=== PATIENT | female | born 1975 | race Caucasian/White ===

== ENCOUNTER 2021-06-22 18:35 | Emergency (ER) | payer BC, SELFPAY ==
[2021-06-22 18:45] VITALS: BP 150/81; PULSE 91; RESP 18; TEMP 37.3; O2SAT 99
--- NOTE | 2021-06-22 18:48 | ED.FEMALEGU ---
HPI - Female Genitourinary General Chief complaint: Urogenital-Female Stated complaint: exposure to std Time Seen by Provider: 06/22/21 18:45 Source: patient and RN notes reviewed Mode of arrival: ambulatory Limitations: no limitations History of Present Illness HPI Narrative: 46-year-old female presents to the [facility] with concerns over STD exposure, specifically gonorrhea. Patient states that a person she was intimate with had called her today and states that he tested positive for gonorrhea. Denies any symptoms. No open sores. No rashes, no abnormal discharge Related Data Home Medications Medication Instructions Recorded Confirmed hydrochlorothiazide 25 mg tablet 25 mg PO DAILY 11/13/19 cefuroxime axetil 06/22/21 clonazepam 06/22/21 cyclobenzaprine mg 06/22/21 venlafaxine mg PO 06/22/21 Allergies Allergy/AdvReac Type Severity Reaction Status Date / Time adhesive Allergy Unknown BLISTERS Verified 11/13/19 12:50 niacin Allergy Unknown Unknown Verified 11/13/19 12:50 Review of Systems Review of Systems: All systems reviewed & are unremarkable except as noted in HPI and below Constitutional: Constitutional: Reports no additional constitutional complaints, Denies chills and Denies fatigue Eyes: Eyes: Reports no additional eye complaints ENT: Reports system reviewed and no additional complaints, except as documented Cardiovascular: Cardiovascular: Reports no additional cardiovascular complaints Respiratory: Respiratory: Reports no additional respiratory complaints Gastrointestinal: Gastrointestinal: Reports no additional gastrointestinal complaints and Denies abdominal pain Genitourinary: Genitourinary: Reports no additional female genitourinary complaints and Denies dysuria Musculoskeletal: Musculoskeletal: Reports no additional musculoskeletal complaints Integumentary/Breasts: Skin/Breast: Reports system reviewed and no additional complaints, except as docu Neurologic: Reports system reviewed and no additional complaints, except as documented Psychiatric: Psychiatric: Reports no additional psychiatric complaints Allergic/Immunologic: Allergic/Immunologic: Reports no additional allergic/immunologic complaints [facility] Past Medical History Medical History (Updated 06/22/21 @ 19:29 by Helena Kovacs) Anemia Hypertension Surgical History Surgical History History of endometrial ablation History of tubal ligation Hx of cholecystectomy Family History Family History Mother Hypertension Family history of diabetes mellitus in first degree relative Father Hypertension Grandparent Hypertension Carcinoma of colon Diabetes mellitus Social History Social History Smoking status: Never smoker Second hand tobacco smoke exposure: No Alcohol intake: current Gender identity (if verbalized by the patient): Female Comments At the time of my signature, I reviewed and agree with the nursing past medical, surgical, social, and family history. There is no relevant family history pertinent to the patient complaint. Exam Const: General: healthy appearing, no acute distress and alert Nutritional Appearance: well nourished Orientation/consciousness: patient oriented x3 Limitations: no limitations HENMT: Head: normal to inspection Ears: external ears normal Eyes: Conjunctivae: conjunctivae normal Pupils: Equal, round and reactive pupils present Neck: Neck: normal visual inspection, no lymphadenopathy and no meningeal signs Chest: Chest palpation & inspection: normal inspection of the chest Resp: Effort & Inspection: normal respiratory effort and no use of accessory muscles Auscultation: clear to auscultation bilaterally, no crackles, no rales, no rhonchi and no wheezes Cardio: Rate: regular rate Rhythm: regular rhythm GI: GI Palp: Yes So
[2021-06-22] MEDS: LIDOCAINE HCL 1% LOCAL INJ 20 ML VIAL 2.1 ML IM (19:24)
[2021-06-22] MEDS: cefTRIAXone 1 GM VIAL 500 GM IM (19:28)
== END 2021-06-22 19:43 | disposition home or self-care (01) ==
PROVIDERS: Emergency Provider Nurse Practitioner; PCP Family Medicine
DX: Z04.89 Encounter for examination and observation for other specified reasons (principal); B37.3 Candidiasis of vulva and vagina; I10 Essential (primary) hypertension
CPT/HCPCS: 87070; 87491; 87591; 87661; 96372; 99214; A9270; G0463; J0696

== ENCOUNTER 2021-10-21 12:35 | Emergency (ER) | payer BC, SELFPAY ==
[2021-10-21 12:56] VITALS: BP 152/79; PULSE 87; RESP 18; TEMP 36.6; O2SAT 97
--- NOTE | 2021-10-21 13:38 | ED.FEMALEGU ---
HPI - Female Genitourinary General Chief complaint: Urogenital-Female Stated complaint: vaginal discharge Source: patient and RN notes reviewed Limitations: no limitations History of Present Illness HPI Narrative: The patient, previously mostly healthy nurse, presents with vaginal discharge. Patient states she has about 1/2-week history of vaginal discharge which is yellowish; she is sexually active --last, protected intercourse about a month ago [partner currently unavailable]. No frequency/urgency/dysuria/malodor, fever, abdominal pain, rash blood; she declines pelvic/bimanual exam. Symptoms are mild most noticeable with micturition;she declines and denies , as she has had only surgery of bilateral tubal ligation. She requests antibiotics pending lab testing results. Vital signs remarkable for blood pressures 152/79. The patient has been informed that they may have pre-hypertension or Hypertension based on a BP reading in the department. I recommend that the patient call the primary care provider listed on their discharge instructions or a physician of their choice this week to arrange follow up for further evaluation of possible pre-hypertension or Hypertension Related Data Allergies Allergy/AdvReac Type Severity Reaction Status Date / Time adhesive Allergy Unknown BLISTERS Verified 11/13/19 12:50 niacin Allergy Unknown Unknown Verified 11/13/19 12:50 Review of Systems Review of Systems: General/Constitutional: No weight loss,fever Eyes: N0: Redness,discharge Ears/Nose/Throat: No: Epistaxis,ear discharge Respiratory: Denies: Hemoptysis Gastrointestinal: No Vomiting, Bleeding-rectal Skin: No Lumps, eruption Neurologic: No Focal Weakness,Sz Hematologic: Denies: Petechiae/Purpura Psychiatric: No: Suicida ideationl All Other Systems: Reviewed and Negative [facility] Past Medical History Medical History (Updated 10/21/21 @ 14:19 by Tin Palomares MD) Anemia Hypertension Surgical History Surgical History History of endometrial ablation History of tubal ligation Hx of cholecystectomy Family History Family History Mother Hypertension Family history of diabetes mellitus in first degree relative Father Hypertension Grandparent Hypertension Carcinoma of colon Diabetes mellitus Social History Social History Smoking status: Never smoker Second hand tobacco smoke exposure: No Alcohol intake: current Gender identity (if verbalized by the patient): Female Comments At time of signature, agree with nursing past medical, surgical, social and family history. There is no relevant family history pertinent to the presenting complaint Exam Narrative: General Appearance: Well appearing, No distress EYE: PERRLA, Conjunctiva clear Ears: External ear normal Nose: Normal nose Mouth/Throat: Normal appearing, Normal lips Neck: Supple Respiratory: Airway patent, No respiratory distress Cardiovascular: RRR Abdomen: Soft, Non-tender, No massess, No organomegaly Musculoskeletal: Full ROM Skin: Warm, Dry Neurological: A&O x3, CN II-X intact Psychiatric: Normal mood, Normal affect Course Vital Signs Vital signs: Vital Signs Temperature 98 F 10/21/21 12:56 Pulse Rate 87 10/21/21 12:56 Respiratory Rate 18 10/21/21 12:56 Blood Pressure 152/79 H 10/21/21 12:56 Pulse Oximetry 97 10/21/21 12:56 Temperature 98 F 10/21/21 12:56 Pulse Rate 87 10/21/21 12:56 Respiratory Rate 18 10/21/21 12:56 Blood Pressure 152/79 H 10/21/21 12:56 Pulse Oximetry 97 10/21/21 12:56 MDM - Female Genitourinary Lab Data Labs: Lab Results 10/21/21 Range/Units 13:55 C.trachomatis RNA (TMA) Pending N.gonorrhoeae RNA (TMA) Pending T. vaginalis Amp RNA Pending Urine Glucose Negative
[2021-10-21] MEDS: cefTRIAXone 1 GM VIAL 0.5 GM IM (13:51)
[2021-10-21] MEDS: LIDOCAINE HCL 1% LOCAL INJ 20 ML VIAL 2.1 ML XX (13:52)
== END 2021-10-21 14:28 | disposition home or self-care (01) ==
PROVIDERS: Emergency Provider Emergency Medicine; PCP Family Medicine
DX: N89.8 Other specified noninflammatory disorders of vagina (principal); I10 Essential (primary) hypertension
CPT/HCPCS: 81003; 87077; 87086; 87088; 87491; 87591; 87661; 96372; 99214; G0463; J0696

== ENCOUNTER 2023-02-27 15:59 | Outpatient (CLI) | payer BC, SELFPAY ==
--- NOTE | ~2023-02-27 | CT_ITS ---
EXAMINATION: CT abdomen pelvis w con DATE: 02/27/2023 16:40 INDICATION: Abdominal pain. Weight loss. Night sweats. TECHNIQUE: Computed tomography (CT) of the abdomen and pelvis was performed with 100 mL Omnipaque 350 intravenous contrast. Automated exposure control and iterative reconstruction technique were employe d. The dose-length product was 752.01 mGy-cm. COMPARISON: None. FINDINGS: The visualized portions of the lung bases demonstrate mild scarring in paraspinal right low er lobe. No pleural effusion. The heart size is normal. No pericardial effusion. The liver and spleen are normal. There are changes of cholecystectomy. The pancreas, adrenal glands, and kidneys are norm al. There is a 1 mm stone in left kidney. There are no dilated loops of bowel. The appendix is normal . There are no pathologically enlarged lymph nodes. There is no free intraperitoneal fluid. There is mild thoracic and lumbar spondylosis. IMPRESSION: 1. No etiology for the patient's symptoms. Reviewed, dictated and finalized at location A.
== END 2023-02-27 16:00 | disposition home or self-care (01) ==
LOC: ANHIMG 16:03
PROVIDERS: PCP Family Medicine; Visit Provider Physician Assistant
DX: R10.9 Unspecified abdominal pain (principal); R63.4 Abnormal weight loss; R61 Generalized hyperhidrosis
CPT/HCPCS: 74177; Q9967

== ENCOUNTER 2023-08-13 15:05 | Outpatient (CLI) | payer BC, SELFPAY ==
[2023-08-13 15:47] LABS: Anion Gap 10 mmol/L (8-16); Blood Urea Nitrogen 11 mg/dL (7-17); Calcium 9.1 mg/dL (8.4-10.2); Carbon Dioxide 27 mmol/L (22-30); Chloride 102 mmol/L (98-107); Estimated Glomerular Filt Rate > 60; Glucose 110 mg/dL (65-110); Potassium 4.3 mmol/L (3.4-5.0); Sodium 139 mmol/L (137-145)
== END 2023-08-13 15:06 | disposition home or self-care (01) ==
PROVIDERS: Anesthesiology; PCP Physician Assistant; Visit Provider Surgery
DX: E11.9 Type 2 diabetes mellitus without complications (principal)
CPT/HCPCS: 36415; 80048

== ENCOUNTER 2023-08-16 00:29 | Day surgery (SDC) | payer BC, SELFPAY ==
--- NOTE | 2023-08-08 16:44 | PC.NURSE ---
Report to the Outpatient Waiting Room, entrance under the green pavilion located off [facility], at time 1000 on date 08/16/23. Planned Procedure Time: 1200. Time changes happen often and if your time is changed the preop area will call you the afternoon before. - You and your visitor will be asked to self-screen and do not enter if you have any COVID symptoms. - A mask is optional within the hospital at this time. Patients may have clear liquids (water, carbonated beverages, clear teas, apple juice) until 3 hours prior to surgery with a maximum of 20 ounces. 0900 - No food from midnight until time of surgery - Infants may have breast milk until 4 hours before surgery, formula 6 hours prior to surgery. - Children will be allowed to drink immediately following surgery. If applicable, please bring a bottle or sippy cup to assist with drinking. Juice, water, soda, and popsicles are readily available. For infants on formula, please bring formula the day of surgery. Pacifiers are allowed. Take the following medications with a SIP of water the morning of surgery: NONE DO NOT STOP ANY OF YOUR OTHER PRESCRIPTION MEDICATIONS PRIOR TO SURGERY ?EXCEPT THE FOLLOWING Medications to discontinue per physician MULTIVITAMINS AND SUPPLEMENTS Date to take last dose 08/13/23 FOR MULTIVITAMINS AND SUPPLEMENTS THE MORNING OF SURGERY CUT YOUR DOSE OF TRESIBA IN HALF. ONLY INJECT 10 UNITS OF INSULIN THE MORNING OF SURGERY. YOU MAY CONTINUE YOUR WEEKLY DOSE OF OZEMPIC/SEMAGLUTIDE. Please no make-up, nail turkmen, hairspray, perfume, deodorant, or body powder the day of surgery. No jewelry (including any body piercings) or valuables the day of surgery, leave them at home. Please take a shower or bath the night before, or the morning of, surgery with an antibacterial soap. Wear comfortable, loose fitting clothing. Children are encouraged to wear pajamas. - Jewelry must be removed prior to entering the operating room. Rings and piercings that are not removed may be cut off. - The hospital will not accept responsibility for valuables. - Please leave all valuables, including medications, at home the day of surgery. If you are going home after surgery, a licensed team truck driver must drive you home. - NO public transportation without another adult if you receive anesthesia. - We recommend that an adult stay with you for 24 hours following discharge. - We also recommend that you do not drive, make important decision, drink alcoholic beverages, or take any drugs that were not prescribed by your health care provider for at least 24 hours after your discharge time. For Pediatric surgeries, we recommend two adults accompany the child home. Follow any additional instructions given to you from your surgeon. If you or anyone in your household have experienced Covid symptoms in the past week, please notify your surgeon or the nurse liaison at the phone number below for possible testing. Telephone instructions given to PATIENT- LINDA DICKEY and asked if any additional questions and then verbalized understanding. Patient advised to call surgeon office or pre surgery nurse liaison [phone] if any additional questions.
[2023-08-08 16:59] VITALS: BMI 31.0
[2023-08-16 10:35] VITALS: BP 143/82; PULSE 100; RESP 18; TEMP 36.2; O2SAT 100
[2023-08-16 10:59] LABS: Glucose Point of Care 88 mg/dl (65-105)
[2023-08-16] MEDS: LACTATED RINGERS 1,000 ML 30 ML IV CONT (11:00)
--- NOTE | 2023-08-16 11:00 | WPDANESEPPF ---
Anes - Initial Pre Proc Eval Procedure: Operation Date: 08/16/23 12:00 Proposed Procedures p Excision Left Upper Abdominal Wall Masses - Malik Obrien DO Date/Time: 08/16/23 11:00 Surgeon: Malik Obrien DO Pre Op Diagnosis: abd wall masses Patient Data Age: 48 Gender: F Height: 1.66 m Weight: 85.9 kg Allergies Allergy/AdvReac Type Severity Reaction Status Date / Time adhesive Allergy Unknown BLISTERS Verified 08/16/23 10:39 niacin Allergy Unknown Unknown Verified 08/16/23 10:39 Home Medications Medication Instructions Recorded Confirmed Type biotin 5 mg capsule 5 mg PO DAILY 04/13/22 08/16/23 History ijwbfekt-jtt-khjq-FA-Ca carb-vit K 1 tablet PO DAILY 04/13/22 08/16/23 History 18 mg iron-400 mcg-500 mg tablet (One-A-Day Womens Formula) semaglutide 2 mg/dose (8 mg/3 mL) 2 mg (0.75 mL) subcut WEEKLY #3 mL 05/22/23 08/16/23 Rx subcutaneous pen injector (Ozempic) pen needle, diabetic 32 gauge x #100 ea 07/01/23 08/16/23 Rx 5/16 (Comfort EZ Pen [place]) Adult Probiotic 1 tab-cap PO DAILY 08/08/23 08/16/23 History insulin degludec 200 unit/mL (3 20 unit subcut DAILY 08/08/23 08/16/23 History mL) subcutaneous pen (Tresiba FlexTouch U-200 insulin) Laboratory Tests 08/16/23 10:57 POC Capillary Glucose 88 mg/dl (65-105) Patient hx anesthesia problems: none Family hx anesthesia problems: none Results Review: All pre-operative results and documents have been reviewed as part of the pre-operative evaluation. [facility] Past Medical History Medical History Anxiety Diabetes mellitus type 2 in obese Generalized headaches Hypertension Major depressive disorder Surgical History Surgical History History of carpal tunnel release bilaterally 2008 History of elbow surgery cubital tunnel release right 2010 cubital tunnel release left 2019 History of endometrial ablation History of tubal ligation Hx of cholecystectomy 2004 Family History Family History Mother Hypertension Family history of diabetes mellitus in first degree relative Father Hypertension Grandparent Hypertension Carcinoma of colon Diabetes mellitus Social History Social History Smoking status: Never smoker Second hand tobacco smoke exposure: No Alcohol intake: current Substance use: never Lack of Transportation: No Lack of Food: Never True Current Housing: I Have Housing Concerned About Future Housing: No Difficulty Paying Gas/Electric Bills: YES Difficulty Paying for Meds: No Currently Unemployed: No Education: Master's Degree or Higher Difficulty w/ Childcare or Family Care: No Living arrangements: with family Occupation/Education: occupation Gender identity (if verbalized by the patient): Female Sexual Orientation (if Verbalized by the Patient): Straight or Heterosexual Spiritual care concerns: No Anes - Eval Final PreProcedure Day of Procedure 08/16/23 11:00 Patient weight: obese Heart: regular rate and rhythm Lungs: clear to auscultation Airway: Mallampati scale class II Neurological: alert and oriented Last oral intake: >/= 8 hours ASA classification: III Emergent: no Anesthetic plan: proceed Anesthesia type and monitoring: general GIVS and standard monitoring Results Review: All pre-operative results and documents have been reviewed as part of the pre-operative evaluation. Informed Consent: The patient's anesthetic plan and its attendant risks and benefits were discussed with the patient/family/POA. Questions were solicited and answers provided to the satisfaction of the patient/family/POA.
--- NOTE | 2023-08-16 12:03 | PM.IMHP ---
H&P: HPI History of Present Illness Date/Time: 08/16/23 12:03 Chief Complaint: LUQ abdominal masses Narrative: 48 yo woman presents with multiple masses in her LUQ. She presents for excision of multiple masses. 5 areas were marked with the patient in preop to identify the most problematic areas. Review of Systems Review of Systems: All systems reviewed & are unremarkable except as noted in HPI and below Constitutional: Constitutional: Denies chills, Denies fever(s), Denies headache(s) and Denies weight loss Eyes: Eyes: Denies change in vision ENT: Denies dizziness, Denies headache(s), Denies neck mass and Denies throat swelling Cardiovascular: Cardiovascular: Denies chest pain, Denies lightheadedness and Denies dyspnea Respiratory: Respiratory: Denies cough, Denies dyspnea and Denies wheezing Gastrointestinal: Gastrointestinal: Denies abdominal pain, Denies change in bowel habits, Denies nausea and Denies vomiting Genitourinary: Genitourinary: Denies hematuria and Denies dysuria Musculoskeletal: Musculoskeletal: Reports as per HPI Integumentary/Breasts: Skin/Breast: Reports as per HPI Neurologic: Denies dizziness and Denies headache(s) Allergic/Immunologic: Allergic/Immunologic: Denies throat swelling and Denies wheezing PMFSH Past Medical History Medical History Anxiety Diabetes mellitus type 2 in obese Generalized headaches Hypertension Major depressive disorder Surgical History Surgical History History of carpal tunnel release bilaterally 2008 History of elbow surgery cubital tunnel release right 2010 cubital tunnel release left 2019 History of endometrial ablation History of tubal ligation Hx of cholecystectomy 2004 Family History Family History Mother Hypertension Family history of diabetes mellitus in first degree relative Father Hypertension Grandparent Hypertension Carcinoma of colon Diabetes mellitus Social History Social History Smoking status: Never smoker Second hand tobacco smoke exposure: No Alcohol intake: current Substance use: never Lack of Transportation: No Lack of Food: Never True Current Housing: I Have Housing Concerned About Future Housing: No Difficulty Paying Gas/Electric Bills: YES Difficulty Paying for Meds: No Currently Unemployed: No Education: Master's Degree or Higher Difficulty w/ Childcare or Family Care: No Living arrangements: with family Occupation/Education: occupation Gender identity (if verbalized by the patient): Female Sexual Orientation (if Verbalized by the Patient): Straight or Heterosexual Spiritual care concerns: No Meds Home Medications and Allergies Home Medications Medication Instructions Recorded Confirmed Type biotin 5 mg capsule 5 mg PO DAILY 04/13/22 08/16/23 History fymsqayy-noo-dvia-FA-Ca carb-vit K 1 tablet PO DAILY 04/13/22 08/16/23 History 18 mg iron-400 mcg-500 mg tablet (One-A-Day Womens Formula) semaglutide 2 mg/dose (8 mg/3 mL) 2 mg (0.75 mL) subcut WEEKLY #3 mL 05/22/23 08/16/23 Rx subcutaneous pen injector (Ozempic) pen needle, diabetic 32 gauge x #100 ea 07/01/23 08/16/23 Rx 5/16 (Comfort EZ Pen [place]) Adult Probiotic 1 tab-cap PO DAILY 08/08/23 08/16/23 History insulin degludec 200 unit/mL (3 20 unit subcut DAILY 08/08/23 08/16/23 History mL) subcutaneous pen (Tresiba FlexTouch U-200 insulin) Allergies Allergy/AdvReac Type Severity Reaction Status Date / Time adhesive Allergy Unknown BLISTERS Verified 08/16/23 11:45 niacin Allergy Unknown Unknown Verified 08/16/23 11:45 Vital Signs Vital Signs - 24 hr 08/16/23 10:35 Temperature 36.2 C L Pulse Rate 100 Respiratory Rate 18 Blood Pressure 143/82 H Pulse Oximetry 100 O
--- NOTE | 2023-08-16 12:06 | WPDHPUPDATE1 ---
History and Physical Update Update Date/Time: 08/16/23 12:06 History and Physical has been reviewed, including an updated exam of the patient. There are NO changes in the patient's condition. Risks, benefits, and alternatives have been discussed and questions answered. Patient agrees to proceed with procedure.
[2023-08-16] MEDS: ceFAZolin 2 GM/D5W 50 ML 2 GM/50 ML BAG IVPB (12:10)
[2023-08-16] MEDS: LIDO 1%/EPINEPHRINE 1:100,000 20 ML VIAL 30 ML INFILTRATE (12:34)
--- NOTE | 2023-08-16 13:08 | P.OP_ITS ---
Procedure Note - Detailed Date of Procedure 08/16/23 Pre-op Diagnosis abd wall masses Post-op Diagnosis Same Procedure Performed 1. Excision of 3 cm left upper quadrant abdominal wall mass x5 2. Excision of 2 cm left upper quadrant abdominal wall mass x1 Surgeon Malik Obrien, DO Anesthesia MAC and Local (1% lidocaine with epinephrine) Indications This is a 48-year-old woman who presented with multiple painful masses her left upper quadrant near her costal margin. She identified 5 or 6 areas that were c ontinuing to cause frequent pain. She noted lumps that were tender to palpation. Discussions were made with the patient about treatment options and decision was made to proceed with excision multiple abdominal wall masses. Findings There were a total of 6 areas that were excised in the left upper quadrant abdominal wall region. All of the areas appeared to be subcutaneous lipomas. There were 5 separate incisions that were made and the mass is deep to this were 3 cm in size. There was 1 more incision that was made that was 2 cm in size. All masses were sent to the lab for pathology. Description of Procedure Procedure as well as risks, benefits, and alternatives were discussed with the patient. Written consent was obtained and placed in chart prior to procedure. Patient was brought back to surgical suite. She was placed supine on operating table. Time-out was done to confirm patient and procedure. She was then given IV sedation by the anesthesia department. Her left upper abdominal area was prepped and draped in sterile fashion using chlorhexidine prep. 1% lidocaine with epinephrine was infiltrated locally at each of the locations for excision. A 3 cm incision was made over the area of the 1st mass using a 15 blade scalpel. Electrocautery was used for hemostasis and for excision of the subcutaneous mass. There were total 5 incisions made over 5 separate areas of subcutaneous mass, each measuring 3 cm. All masses were completely excised with electrocautery. No deep underlying masses were identified after excision. Hemostasis appeared adequate. I then made a 2 cm incision over the most posterior and lateral mass using a 15 blade scalpel. Electrocautery was used for hemostasis and for excision of the subcutaneous mass. It was completely excised and sent to the lab for pathology. The wound bed was then also inspected and no other abnormalities were noted. Hemostasis appeared adequate. All 6 incisions were then reapproximated using 4-0 Monocryl subcuticular sutures. Exofin glue was then applied on top. The patient was then awakened from anesthesia and transferred to recovery. Estimated Blood Loss 5 Pathology Yes (3 cm left upper quadrant abdominal wall mass x5, 2 cm left upper quadrant abdominal wall mass x1) Condition Stable Disposition Same day [facility] Billing Surgery - Charge Forward: Surgery Billing
[2023-08-16 13:37] VITALS: BP 103/81; PULSE 102; RESP 18; O2SAT 99
[2023-08-16 14:02] LABS: Glucose Point of Care 97 mg/dl (65-105)
[2023-08-16 14:05] VITALS: BP 126/69; PULSE 86; RESP 18; O2SAT 99
[2023-08-16] MEDS: fentaNYL CITRATE INJ (*CRX) 100 MCG/2 ML VIAL 25 MCG IV PUSH (14:18)
[2023-08-16] MEDS: oxyCODONE HCL (*CRX) 5 MG TAB IR PO (14:24)
[2023-08-16 14:35] VITALS: BP 116/58; PULSE 78; RESP 18
== END 2023-08-16 15:12 | disposition home or self-care (01) ==
PROVIDERS: PCP Physician Assistant; Visit Provider Surgery
PROC: (CPT 22902; principal; 2023-08-16 12:00)
DX: D17.5 Benign lipomatous neoplasm of intra-abdominal organs (principal); E11.9 Type 2 diabetes mellitus without complications; F41.9 Anxiety disorder, unspecified; I10 Essential (primary) hypertension; F32.9 Major depressive disorder, single episode, unspecified; Z79.85 Long-term (current) use of injectable non-insulin antidiabetic drugs; Z79.4 Long term (current) use of insulin; E66.9 Obesity, unspecified; Z68.30 Body mass index [BMI] 30.0-30.9, adult
CPT/HCPCS: 22902; 22903 ×5; 82948; 88304; A9270; J0690; J2250; J2704; J3010; J7120

== ENCOUNTER 2025-07-15 11:55 | Outpatient (CLI) | payer OTHER, SELFPAY ==
--- OUTSIDE RECORDS SUMMARY | 2025-07-15 12:17 | XMS_ITS | Clinical Summary ---
Author Organization [facility] Address [address] [place] [id number] Care Team Providers Care Mill Beam Fitter Name Role Phone Unavailable Primary Care Provider Unavailabl e Medications insulin degludec 100 unit/mL Solution Inject 15 Units by subcutaneous injection daily. 10 mL 5 01/28/20 24 Active semaglutide (Ozempic) 2 mg/dose (8 mg/3 mL) Pen Injector Inject 2 mg by subcutaneous injection every 7 days. 3 mL 5 01/28/20 24 Active SUMAtriptan (IMITREX) 50 mg tablet Take 1 tablet by mouth at onset of headache; if no relief may repeat 1 tab after at least 2 hrs; max = 4 tabs/24 hr PO 30 Tablet 01/04/2025 12:15 PM MORNING SHOW HOST 12/31/19 25 Active insulin degludec (TRESIBA) 100 unit/mL pen syringe Inject 15 Units by subcutaneous injection daily. 15 mL 01/04/20 25 Active Insulin [place], Disposable, 32 gauge x 5/16 Needle use one pen needle daily by subcutaneous route for diabetes. 100 Each 2 03/30/2025 9:47 AM CDT 03/12/20 25 Active semaglutide (Ozempic) 1 mg/dose (4 mg/3 mL) Pen Injector Inject 1 mg by subcutaneous injection every 7 days. 3 mL 03/29/2025 3:18 PM CDT 03/25/20 25 Active insulin glargine U-300 conc 300 unit/mL (3 mL) Insulin Pen Inject 10 Units by subcutaneous injection daily. Discard pen 56 days after first use 6 mL 05/03/2025 12:36 PM CDT 03/25/20 25 Active cyclobenzaprin e (FLEXERIL) 5 mg Tablet Take 1 Tablet (5 mg) by mouth 3 times daily as needed for muscle spasm 30 Tablet 1 07/12/2025 2:46 PM CDT 07/08/20 25 Active semaglutide (Ozempic) 2 mg/dose (8 mg/3 mL) Pen Injector Inject 2 mg by subcutaneous injection every 7 days. 3 mL 3 07/12/2025 2:46 PM CDT 07/08/20 25 Active nitroglycerin (NITRODUR) 0.1 mg/hr patch Apply 1 patch transdermally daily; allow nitrate-free interval of approx. 10-12 hrs per 24-hour period 30 Patch 1 07/12/2025 2:46 PM CDT 07/08/20 25 Active semaglutide (Ozempic) 2 mg/dose (8 mg/3 mL) Pen Injector Inject 2 mg by subcutaneous injection every 7 days. 3 mL 06/02/2025 8:50 AM CDT 06/01/20 25 025 Discontin ued(Reord er) Active Problems No known active problems Encounters Date Type Department Care Team Description 06/29/2025 External Device Data ST[facility] ABSTRACTION Provider, Abstract 06/09/2025 External Device Data [facility] ABSTRACTION Provider, Abstract 06/08/2025 External Device Data [facility] ABSTRACTION Provider, Abstract 05/11/2025 External Device Data [facility] ABSTRACTION Provider, Abstract 04/27/2025 External Device Data [facility] ABSTRACTION Provider, Abstract 04/15/2025 External Device Data ST[facility] ABSTRACTION Provider, Abstract from Last 3 Months Immunizations Immunization Administration Dates Next Due (PFIZER)(12 YR UP) COVID-19 VACCINE - EMERGENCY USE AUTHORIZATION, MRNA, [id number](PF) 30 MCG/0.3 ML IM SUSP 10/26/2021,12/26/2020,12/05/2020 (Pfizer Bivalent)(12 Yr Up) COVID-19 Vaccine - Emergency Use Authorization, MRNA, Lnp-S(Pf) 30 Mcg/0.3 Ml Susp 08/02/2022 Influenza Seasonal Unspecifi ed Formulation IM 09/16/2024,09/04/2023,08/28/2022,2020 Social History Tobacco Use Types Packs/Day Years Used Date Smoking Tobacco: Never Assessed Comments Unknown Sex and Gender Information Value Date Recorded Sex Assigned at Not on file Legal Sex Female 10:36 AM MORNING SHOW HOST Gender Identity Not on file Sexual Orientation Not on file Plan of Treatment Health Maintenance Due Date Last Done Comments DTAP/TDAP/TD VACCINES (1 - Tdap) 02/06/1995 HEPATITIS B VACCINES (1 of 3 - 19+ 3-dose series) 02/06/1995 HPV/Cotest (21-29) 02/06/1997 CERVICAL CANCER SCREENING 02/06/2006 HPV/Cotest (30-65) 02/06/2006 PAP SMEAR 02/06/2006 BREAST CANCER SCREENING 2016 COLORECTAL SCREENING 02/06/2021 Colorectal Cancer Screening 02/06/2021 FIT-DNA Q 3 years 02/06/2021 FIT/FOBT Q 1 year 02/06/2021 Flex Sig/CT Colonography Q 5 years 02/06/2021 COVID-19 Vaccine ( - 2023-2 5 season) 2024 08/02/2022, 10/26/2021, 12/26/2020, Additional history exists INFLUENZA VACCINE (#1) 2025 , 09/04/2023, 08/28/2022, Additional history exists Insurance [facility] [employer] (INTERNAL) [facility] [employer] Member Subscriber Plan / Payer (Ef fective 2024-Present) Name:Mireille Gerardo Relation to Subscriber:Not on file Name:Mireille Gerardo Subscriber ID:Not on file Date of :1975 Payer ID:Not on file Type:Not on file Address: [place]
--- OUTSIDE RECORDS SUMMARY | 2025-07-15 12:17 | XMS_ITS | Encounter Summary ---
Author Organization [employer] Address [address] [place] [address] Care Team Providers Care Garnett Room Worker Name Role Phone Unavailable Primary Care Provider Unavailabl e Encounter Details Date Type Department Care Team (Late st Contact Info) Description 09/26/2020 Lab Requisition [facility] [address] [place] [address] [place] [address] [facility] [address] [place] [address] Illness, unspecified Social History Tobacco Use Types Packs/Day Years Used Date Smoking Tobacco: Never Assessed Comments Unknown Sex and Gender Information Value Date Recorded Sex Assigned at Not on file Legal Sex Female 10:36 AM GLOBAL REGULATORY LEAD Gender Identity Not on file Sexual Orientation Not on file documented as of this encounter Plan of Treatment Not on file documented as of this encounter Procedures Procedure Name Priority Date/Time Associated Diagnosis Comments HEPATITIS B SURFACE AB, QUANT Routine 09/26/2020 8:48 AM GLOBAL REGULATORY LEAD Illness, unspecified RUBEOLA IGG Routine 09/26/2020 8:48 AM GLOBAL REGULATORY LEAD Illness, unspecified RUBELLA IGG Routine 09/26/2020 8:48 AM GLOBAL REGULATORY LEAD Illness, unspecified VARICELLA ZOSTER IGG Routine 09/26/2020 8:48 AM GLOBAL REGULATORY LEAD Illness, unspecified MUMPS IGG ANTIBODY Routine 09/26/2020 8: 48 AM GLOBAL REGULATORY LEAD Illness, unspecified documented in this encounter Results * (ABNORMAL) VARICELLA ZOSTER IGG (09/26/2020 8:48 AM GLOBAL REGULATORY LEAD) VARICELLA ZOSTER IGG Nonimmune - Negative(A) Immune - Positive 09/28/2020 8:01 AM GLOBAL REGULATORY LEAD [facility] VARICELLA IGG INDEX 0.53 09/28/2020 8:01 AM GLOBAL REGULATORY LEAD [facility] Comment: Nonimmune - Negative <0.60 AI Equivocal 0.60 - 0.89 AI Immune - Positive >0.89 AI Blood Collection / Unknown 09/26/2020 8:48 AM GLOBAL REGULATORY LEAD 09/26/2020 10:39 AM GLOBAL REGULATORY LEAD [facility] - 09/28/2020 8:01 AM GLOBAL REGULATORY LEAD A negative result indicates no virus antibody was detected. Brodie Chaudhry MD CHEMISTRY ORDERABLES Final R esult Performing Organization Address [facility] de Phone Number [facility] CLIA# [id number] [place] [address] * RUBEOLA IGG (09/26/2020 8:48 AM GLOBAL REGULATORY LEAD) RUBEOLA IGG Immune - Positive Immune - Positive 09/28/2020 8:43 AM GLOBAL REGULATORY LEAD [facility] RUBEOLA IGG INDEX 0.92 09/28/2020 8:43 AM GLOBAL REGULATORY LEAD [facility] Comment: Nonimmune - Negative <0.50 AI Equivocal 0.50 - 0.69 AI Immune - Positive >0.69 AI Blood Collection / Unknown 09/26/2020 8:48 AM GLOBAL REGULATORY LEAD 09/26/2020 10:39 AM GLOBAL REGULATORY LEAD [facility] - 09/28/2020 8:43 AM GLOBAL REGULATORY LEAD A positive result suggests response to immunization or prior exposure to the virus. Brodie Chaudhry MD CHEMISTRY ORDERABLES Final R esult Performing Organization Address [facility] Co de Phone Number [facility] [place] [place]# [id number] [place] [address] * MUMPS IGG ANTIBODY (09/26/2020 8:48 AM GLOBAL REGULATORY LEAD) Pathologist [facility] MUMPS IGG AB IMMUNE Immune - Positive 09/28/2020 9:58 AM GLOBAL REGULATORY LEAD [facility] MUMPS IGG INDEX 0.73 09/28/2020 9:58 AM GLOBAL REGULATORY LEAD [facility] Comment: Nonimmune - Negative <0.35 AI Equivocal 0.35 - 0.49 AI Immune - Positive >0.49 AI Blood Collection / Unknown 09/26/2020 8:48 AM GLOBAL REGULATORY LEAD 09/26/2020 10:39 AM GLOBAL REGULATORY LEAD [facility] - 09/28/2020 9:58 AM GLOBAL REGULATORY LEAD A positive result suggests response to immunization or prior exposure to the virus. Brodie Chaudhry MD CHEMISTRY ORDERABLES Final R esult Performing Organization Address City/[facility]/ZIP Co de Phone Number [facility] CLIA# [id number] [place] [address] * RUBELLA IGG (09/26/2020 8:48 AM GLOBAL REGULATORY LEAD) [facility] RUBELLA IGG IMMUNE Immune - Positive 09/27/2020 8:32 AM GLOBAL REGULATORY LEAD [facility] Blood Collection / Unknown 09/26/2020 8:48 AM GLOBAL REGULATORY LEAD 09/26/2020 10:39 AM GLOBAL REGULATORY LEAD [facility] - 09/27/2020 8:32 AM GLOBAL REGULATORY LEAD A positive result suggests response to immunization or prior exposure to the virus. Brodie Chaudhry MD CHEMISTRY ORDERABLES Final R esult Performing Organization Address City/[facility]/ZIP Co de Phone Number [facility] CLIA# [id number] [place] [address] * (ABNORMAL) HEPATITIS B SURFACE AB, QUANT (09/26/2020 8:48 AM GLOBAL REGULATORY LEAD) [facility] HEPATITIS B SURF AB,QN <4.0 mlU/mL 09/26/2020 3:52 PM GLOBAL REGULATORY LEAD [facility] HEPATITIS B SURFACE AB INTERP Non-reacti ve(A) See Interp 09/26/2020 3:52 PM GLOBAL REGULATORY LEAD [facility] Blood Collection / Unknown 09/26/2020 8:48 AM GLOBAL REGULATORY LEAD 09/26/2020 10:39 AM GLOBAL REGULATORY LEAD Narrative [facility] - 09/26/2020 3:52 PM GLOBAL REGULATORY LEAD Patient does not have immunity to Hepatitis B virus. This assay is used to determine immune status to Hepatitis B as greater than or equal to 10 mIU/mL as per CDC guidelines (MMWR:vol 55: RR-16, 2006). us Brodie Chaudhry MD CHEMISTRY ORDERABLES Final R esult [facility]# [id number] [address] [place] [address] documented in this encounter Visit Diagnoses Diagnosis Illness, unspecified documented in this encounter Additional Health Concerns Infection Onset Date Last Indicated Resolved Time R/O COVID-19 11/09/2020 11/09/2020 11/10/2020 2:31 AM GLOBAL REGULATORY LEAD R/O COVID-19 12/08/2021 12/08/2021 12/08/2021 11:2 6 PM GLOBAL REGULATORY LEAD COVID-19 12/08/2021 12/08/2021 01/07/2022 1:17 AM GLOBAL REGULATORY LEAD documented as of this encounter
[2025-07-15 12:21] LABS: Hemoglobin A1C 6.4 % (<5.7)
[2025-07-15 12:44] LABS: CRP 1.4 mg/dL (<1.0)
[2025-07-15 12:58] LABS: MALB Creatinine Ratio 9.1 mg/g (0-30)
[2025-07-16 11:09] LABS: Anti-CCP Ab, IgG/IgA 3 units (0-19)
== END 2025-07-15 11:56 | disposition home or self-care (01) ==
PROVIDERS: PCP Family Medicine
DX: M25.50 Pain in unspecified joint (principal); E11.69 Type 2 diabetes mellitus with other specified complication; E66.9 Obesity, unspecified
CPT/HCPCS: 36415; 82043; 83036; 85652; 86140; 86200; 86430